=== PATIENT | female | born 1995 | race Caucasian/White ===

== ENCOUNTER 2017-11-01 15:23 | Emergency (ER) | payer OTHER ==
[2017-11-01 16:27] LABS: URINE PH (Dip) POC 6.5 (5.0-8.5)
[2017-11-01 16:27] LABS: URINE BLOOD (Dip) POC 3+ (NEGATIVE); URINE GLUCOSE (Dip) POC Negative (NEGATIVE); URINE KETONES (Dip) POC Trace (NEGATIVE); URINE LEUKOCYTE EST (Dip) POC Negative (NEGATIVE); URINE NITRITE (Dip) POC Negative (NEGATIVE); URINE TOTAL PROTEIN POC 1+ (NEGATIVE)
[2017-11-01] MEDS: HYDROCODONE/APAP (5/325) TAB PO (16:28)
[2017-11-01] MEDS: IBUPROFEN 600 MG TAB PO (16:28)
[2017-11-01] MEDS: ONDANSETRON (ODT) 4 MG TAB ODT (16:28)
== END 2017-11-01 17:11 | disposition home or self-care (01) ==
LOC: FTE 15:23
DX: N94.6 Dysmenorrhea, unspecified (principal); J45.909 Unspecified asthma, uncomplicated; F17.210 Nicotine dependence, cigarettes, uncomplicated
CPT/HCPCS: 81003; 81025; 99283